=== PATIENT | female | born 1980 | race African-American/Black ===

== ENCOUNTER 2017-06-03 23:18 | Inpatient (IN) | payer BC, MEDICAID ==
[2017-06-03 23:55] LABS: #Eosinphils 0.1 thou/uL (0.0-0.7); #Lymphocytes 1.9 thou/uL (1.20-3.40); #Monocytes 0.2 thou/uL (0.11-0.59); #Neutrophils 4.5 thou/uL (1.40-6.50); %Basophils 0.7 % (0.0-1.0); %Eosinophils 2.1 % (0.0-10.0); %Lymphocytes 27.8 % (21.0-51.0); %Monocytes 3.3 % (0.0-10.0); %Neutrophils 66.2 % (42.0-75.0); Hemoglobin 11.5 g/dL (12.0-16.0); Mean Corpuscular HGB CONC 32.9 g/dL (32.0-36.0); Mean Corpuscular Hemoglobin 27.9 pg (27.0-31.0); Mean Corpuscular Volume 84.9 fl (81.0-99.0); Mean Platelet Volume 8.9 fL (7.4-10.4); Platelet Count 194 thou/uL (130-400); RBC Distribution Width 12.8 % (11.5-14.5); Red Blood Cell (RBC) Count 4.11 mill/uL (4.20-5.40); White Blood Cell (WBC) Count 6.8 thou/uL (4.8-10.8)
[2017-06-04 00:17] LABS: ALT (SGPT) 22 U/L (8-55); AST (SGOT) 20 U/L (5-34); Alkaline Phosphatase 90 U/L (40-150); Anion Gap 13 mmol/L (10-20); BUN (Urea Nitrogen) 13 mg/dL (7.0-18.7); Bilirubin, Total 0.5 mg/dL (0.2-1.2); Calc. Creatinine Clearance 0 mL/min (70-130); Calcium 9.1 mg/dL (7.8-10.44); Carbon Dioxide 22 mmol/L (22-29); Chloride 103 mmol/L (98-107); Estimated GFR-MDRD 87; Globulin 3.3 g/dL (2.4-3.5); Glucose 365 mg/dL (70-105); Potassium 3.7 mmol/L (3.5-5.1); Protein, Total 7.3 g/dL (6.0-8.3); Sodium 134 mmol/L (136-145)
[2017-06-04 00:24] LABS: Bilirubin Negative (Negative); Blood, Urine Trace (Negative); Clarity CLOUDY (Clear); Glucose, Urine (Dipstick) >=1000 mg/dL (Negative); Leukocyte Negative (Negative); Nitrite Negative (Negative); Protein, Urine (Dipstick) 300 mg/dL (Neg-Trace); Specific Gravity, Urine 1.023 (1.002-1.036); Urobilinogen 0.2 mg/dL (0.2-1.0)
[2017-06-04 00:25] LABS: CKMB 0.9 ng/mL (0-6.6); Troponin I Less than 0.010 ng/mL (< 0.028)
[2017-06-04 00:26] LABS: Bacteria/HPF Rare-Few HPF (None Seen); Hyaline Casts/LPF 0-3 HYALINE CAST LPF (0-3 Hyaline); Pathc Cast-AUWi Flag 0.72 (0-2.49); RBC/HPF 0-3 HPF (0-3); Squamous Epithelial 0-3 HPF (0-3)
[2017-06-04] MEDS ORDERED: Nitroglycerin 2% Ointment 1 INCH/1 GM Packet ONE (01:02)
[2017-06-04] MEDS ORDERED: Furosemide 40 MG/4 ML VIAL ONE (01:02)
[2017-06-04] MEDS ORDERED: Dextrose 50% Abboject 50 ML SYRINGE SLOW IVP PRN (04:07)
[2017-06-04] MEDS ORDERED: Dextrose 5% in Water 1,000 ML IV PRN (04:07)
[2017-06-04] MEDS ORDERED: HumaLOG 300 UNITS/3 ML VIAL SC PRN (04:10)
--- NOTE | 2017-06-04 04:33 | PDOC.FPRHP ---
- History of Present Illness Chief Complaint: SOB History of Present Illness: Patient is a 36yo F with PMH of cardiomyopathy and mixed CHF (last EF 35-40%), HTN, T2DM, and ERIC presenting iwht 2 wk hx of worsening orthopnea and dyspnea. She takes Lasix 40mg PO daily and recently decreased her antihypertensive medications. She is noncompliant with a fluid restriction and with CPAP for ERIC. She reports a wet cough but no fever, chills, chest pain, dysuria, or LE edema. ED Course: Lasix 40mg IV, Nitro patch, Rocephin 1g IV - Allergies/Adverse Reactions Allergies Allergy/AdvReac Type Severity Reaction Status Date / Time No Known Drug Allergies Allergy Verified 06/04/17 03:10 - Home Medications Medication Instructions Recorded Confirmed Type Insulin Detemir 100 UNITS/ML 36 units SC QAM #1 vial 07/07/16 06/04/17 Rx [Levemir] Furosemide [Lasix] 40 mg PO DAILY 06/04/17 06/04/17 History Metoprolol Succinate 100 mg PO DAILY 06/04/17 06/04/17 History metFORMIN [Glucophage] 500 mg PO BID 06/04/17 06/04/17 History - History PMHx: 1. ERIC 2. HTN 3. mixed CHF 4. Depression 5. Hx of Cardiomyopathy PSHx: 1. Ablation 2. Heart Cath (2017) FHx: 1. DM Social: 1. Denies etoh, drug, tobacco use - Review of Systems General: denies: fever/chills, weight/appetite/sleep changes Eyes: denies: eye pain, vision changes ENT: denies: nasal congestion, rhinorrhea Respiratory: reports: cough, shortness of breath, exercise intolerance. denies : congestion Cardiovascular: reports: orthopnea. denies: chest pain, palpitation Gastrointestinal: denies: nausea, vomiting, diarrhea, constipation, GI bleeding Genitourinary: denies: incontinence, dysuria Skin: denies: rashes Musculoskeletal: denies: pain, tenderness Neurological: denies: numbness, syncope Psychological: denies: anxiety, depression - Vital signs BP: 128/75 HR: 97 RR: 16 Tmax: 98.5 Pox: 93% on RA Wt: 99kg - Physical Exam Constitutional: NAD, awake, alert and oriented HEENT: normocephalic and atraumatic, PERRLA, EOMI, grossly normal vision, grossly normal hearing Neck: supple, FROM Chest: no-tender to palpation Heart: RRR -Heart: systolic murmur Lungs: no respiratory distress, good air movement -Lungs: rhonchi at bases bilaterally Abdomen: soft, non-tender, bowel sounds present Musculoskeletal: normal structure, normal tone Neurological: no focal deficit, CN II-XII intact Skin: no rash/lesions Psychiatric: normal mood and affect FMR H&P: Results - Labs Result Diagrams: 06/03/17 23:47 06/03/17 23:47 Lab results: WBC 6.8 thou/uL (4.8-10.8) 06/03/17 23:47 Hgb 11.5 g/dL (12.0-16.0) L 06/03/17 23:47 Hct 34.9 % (36.0-47.0) L 06/03/17 23:47 MCV 84.9 fl (81.0-99.0) 06/03/17 23:47 Plt Count 194 thou/uL (130-400) 06/03/17 23:47 Neutrophils % 66.2 % (42.0-75.0) 06/03/17 23:47 Sodium 134 mmol/L (136-145) L 06/03/17 23:47 Potassium 3.7 mmol/L (3.5-5.1) 06/03/17 23:47 Chloride 103 mmol/L (98-107) 06/03/17 23:47 Carbon Dioxide 22 mmol/L (22-29) 06/03/17 23:47 BUN 13 mg/dL (7.0-18.7) 06/03/17 23:47 Creatinine 0.89 mg/dL (0.6-1.1) 06/03/17 23:47 Glucose 365 mg/dL (70-105) H 06/03/17 23:47 Calcium 9.1 mg/dL (7.8-10.44) 06/03/17 23:47 Total Bilirubin 0.5 mg/dL (0.2-1.2) 06/03/17 23:47 AST 20 U/L (5-34) 06/03/17 23:47 ALT 22 U/L (8-55) 06/03/17 23:47 Alkaline Phosphatase 90 U/L (40-150) 06/03/17 23:47 CK-MB (CK-2) 0.9 ng/mL (0-6.6) 06/03/17 23:47 B-Natriuretic Peptide 191.6 pg/mL (0-100) H 06/03/17 23:47 Serum Total Protein 7.3 g/dL (6.0-8.3) 06/03/17 23:47 Albumin 4.0 g/dL (3.5-5.0) 06/03/17 23:47 Urine Ketones Negative mg/dL (Negative) 06/04/17 00:05 Urine Blood Trace (Negative) H 06/04/17 00:05 Urine Nitrite Negative (Negative) 06/04/17 00:05 Ur Leukocyte Esterase Negative (Negative) 06/04/17 00:05 Urine RBC 0-3 HPF (0-3) 04 00:05 Urine WBC Greater Than 50-TNTC HPF (0-3) H 06/04/17 00:05 Ur Squamous Epith Cells 0-3 HPF (0-3) 06/04/17 00:05 Urine Bacteria Rare-Few HPF (None Seen) 06/04/17 00:05 - EKG Interpretation EKG: Sinus Tachycardia with PVC's - Radiology Interpretation Chest x-ray Status: image reviewed by me, report reviewed by me Additional comment: vascular congestion with small bilateral pleural effusions FMR H&P: A/P - Problem List (1) CHF exacerbation Current Visit: Yes Status: Acute Code(s): I50.9 - HEART FAILURE, UNSPECIFIED (2) Elevated d-dimer Current Visit: Yes Status: Acute Code(s): R79.89 - OTHER SPECIFIED ABNORMAL FINDINGS OF BLOOD CHEMISTRY (3) Hypertension Current Visit: Yes Status: Acute Code(s): I10 - ESSENTIAL (PRIMARY) HYPERTENSION (4) Diabetes mellitus type 2 in obese Current Visit: No Status: Chronic Code(s): E11.9 - TYPE 2 DIABETES MELLITUS WITHOUT COMPLICATIONS; E66.9 - OBESITY, UNSPECIFIED (5) Obstructive sleep apnea Current Visit: No Status: Chronic Code(s): G47.33 - OBSTRUCTIVE SLEEP APNEA (ADULT) (PEDIATRIC) (6) Systolic CHF Current Visit: No Status: Chronic Code(s): I50.20 - UNSPECIFIED SYSTOLIC ( CONGESTIVE) HEART FAILURE - Plan CHF Exacerbation - patient noncompliant with HTN medications, CPAP, and fluid restriction- likely the cause of exacerbation - obtain records from recent echo at [facility] - IV Lasix, strict IO's, daily wts - O2 as needed for hypoxia, not hypoxic at this time HTN, uncontrolled - increase Lisinopril to 5mg - continue home medications and monitor ERIC - CPAP at night T2DM - ACHS accuchecks - home levemir Elevated D-Dimer - CTA pending Possible UTI - Asymptomatic. - s/p 1 dose of Rocephin in ED - Urine cx pending Disposition/LOS: Length of Hospital stay: < 2 days D/c home when euvolemic with adequate BP medications for control. FMR H&P: Upper Level - Pertinent history PCP: Nery HAMMONDS) Time Seen: 245 on 06/04/17 CC: Orthopnea and dyspnea 36 year old female presents for orthopnea and dyspnea ongoing for about 2 weeks. She reports increasing dyspnea at rest, exertional dyspnea, PND, and a nonproductive cough. She has also had a mild headache. Denies lower extremity edema, chest pain, AP, N/V/D. Previously attended HF clinic at [facility]. She has seen a cloth shrinking supervisor at [facility] in [place] twice. PMH - Combined systolic and diastolic CHF, DM2 with peripheral neuropathy, HTN, obstructive sleep apnea, allergic rhinitis, obesity PSH - Cardiac ablation, cardiac catheterization, - Pertinent findings Vital Signs Tmax 98.2 RR 26 HR 100 BP 158/106 O2 sats 100% on RA Weight 117 kg Physical Exam General: Obese, NAD, AAOx4. Eyes: EOMI, PERRL, nonicteric ENT: MMM, oropharynx clear CV: RRR, no m/r/g. Pulses full and equal in all 4 extremities Resp: Bibasilar rales. No wheezing or rhonchi. Breathing nonlabored Abdomen: Soft, nontender, nondistended, no guarding or rebound. Bowel sounds positive in all quadrants Extremities: No clubbing, cyanosis, or edema. Equal movements bilaterally Skin: No rash or ulcer. No palpable lesions Neuro: CN II - XII intact, no focal deficits Psych: Mood and affect appropriate. Judgment and insight intact - Plan Date/Time: 06/04/17 0432 Vinicius Irvin DO, have evaluated this patient and agree with findings/plan as outlined by art gallery internship resident. Pertinent changes/additions are listed here. A/P: 36 year old female presents with: 1) Acute exacerbation of combined CHF - Admit to telemetry. Continue diuresis. Strict I&Os. Resume home meds. Patient feels symptomatically improved after iv Lasix in the ED. Patient reports having an echo this year a [facility]. Will obtain records if possible. Consider repeat echo if not available. 2) Hypertension - Home meds will likely need to be increased with possible increase in other meds. Patient has been noncompliant with her medications, so restarting her prescribed meds is a good starting point. We discussed at length that failure to get her blood pressure at goal will likely result in worsening of her CHF. Patient verbalized understanding and staged she would attempt to take meds as instructed. 3) DM2 - Accuchecks, sliding scale insulin, and home meds 4) Obstructive sleep apnea - Untreated. Patient needs counseling on risks of untreated sleep apnea and benefits of CPAP use 5) Code status - Full Attending Addendum - Attending Addendum Date/Time: 06/04/17 1056 I personally evaluated the patient and discussed the management with Dr. Tse/ Eliot. I agree with the History, Examination, Assessment and Plan documented above with any addition or exceptions noted below. Patient here with history of sdCHF, HTN and med noncompliance here with increasing SORTO and orthopnea at night associated with highly elevated blood pressures. She has lung findings consistent with mild volume overload, and blood pressures elevated, though chronically after review of clinic records. She will be admitted for mild sdCHF exacerbation with mild hypoxia and HTN urgency. Resume blood pressure medications and attempt mild diuresis. She is already feeling somewhat improved. Counselled extensively on the need for adequate blood pressure control to control her symptoms as well as prevent further decompensation of her heart failure. Attempt to obtain records of her recent Echo. Her blood sugars are elevated but she reports decent numbers at home. Resume home regimen and titrate as necessary. Anticipate 2-3 days hospitalization.
[2017-06-04] MEDS: HumaLOG 300 UNITS/3 ML VIAL SC PRN ×2 (06:11→18:08)
--- NOTE | 2017-06-04 07:53 | RAD ---
CHEST PA AND LATERAL: History: 36-year-old female with history of shortness of breath and congestive heart failure. FINDINGS: There is bilateral vascular congestion as well as some scattered bilateral interstitial edema. There are bilateral pleural effusions. IMPRESSION: Mild cardiomegaly with vascular congestion and mild interstitial edema and small pleural effusions. POS: [facility]
--- NOTE | 2017-06-04 08:37 | CT ---
PRELIMINARY REPORT/[facility]/EMERGENTY AFTER-HOURS PROCEDURE CT Angiography Chest With Intravenous Contrast CLINICAL HISTORY: 36 years old, female; Signs and symptoms; Dyspnea and shortness of breath; Prior surgery; Patient HX: F36 presents to ed for shortness of breath. Pt reports SOB x2 weeks and non-productive cough. Pt rep orts SOB is worse with exertion and is worse when lying flat. Pt denies fever and denies any pain. Pt reports this feels similar to her previous chf exacerbations. TECHNIQUE: Axial computed tomographic angiography images of the chest with intravenous contrast using pulmonary embolism protocol. COMPARISON: No relevant prior studies available. FINDINGS: Pulmonary arteries: No pulmonary embolism. Aorta: No acute findings. No thoracic aortic aneurysm. Lungs: Mild ground glass opacities and lingular/left upper lobe vague opacities. Question minimal interstitial thickening Pleural space: Small effusions. No pneumothorax. Heart: Moderate to severe cardiomegaly. No significant pericardial effusion. No evidence of RV dysfunction. Bones/joints: No acute fracture. No dislocation. Soft tissues: Unremarkable. Lymph nodes: Unremarkable. No enlarged lymph nodes. Hepatomegaly noted IMPRESSION: No definite pulmonary embolism detected Mild edema and small pleural effusions Moderate to severe cardiomegaly Thank you for allowing us to participate in the care of your patient. Dictated and Authenticated by: Michael Mercado MD 06/04/2017 4:25 AM Central Time ([place] & [place]) FINAL REPORT CT ANGIOGRAM CHEST WITH [facility] EMERGENCY AFTER HOURS EXAM TIME: 3:36 a.m. DATE: 06/04/17. FINDINGS: Bilateral pleural effusions with some bilateral vascular congestion and some interstitial and alveola r diffuse parenchymal changes and ground-glass opacity changes, evidence for acute pulmonary edema. No CT evidence for acute pulmonary embolism. Cardiomegaly. POS: [facility]
[2017-06-04] MEDS ORDERED: ADMIXTURE FEE SC SCH ×2 (09:00→21:00)
[2017-06-04] MEDS ORDERED: Valsartan 80 MG TAB PO SCH ×2 (09:00→18:15)
[2017-06-04] MEDS ORDERED: metFORMIN 500 MG TAB PO SCH (09:00)
[2017-06-04] MEDS ORDERED: INSULIN DETEMIR SC SCH ×2 (09:00→21:00)
[2017-06-04] MEDS: Furosemide 40 MG/4 ML VIAL SLOW IVP SCH (10:15)
[2017-06-04] MEDS ORDERED: ISOVUE-370 76%-LOCM 1 ML ONE (10:44)
[2017-06-04] MEDS: Citalopram 20 MG TAB PO SCH (14:33)
[2017-06-04] MEDS ORDERED: Labetalol HCl 100 MG/20 ML VIAL SLOW IVP PRN (21:34)
[2017-06-05 05:23] LABS: Anion Gap 9 mmol/L (10-20); BUN (Urea Nitrogen) 24 mg/dL (7.0-18.7); Calc. Creatinine Clearance 147 mL/min (70-130); Calcium 9.4 mg/dL (7.8-10.44); Carbon Dioxide 29 mmol/L (22-29); Chloride 103 mmol/L (98-107); Estimated GFR-MDRD Greater than 90; Glucose 140 mg/dL (70-105); Potassium 3.7 mmol/L (3.5-5.1); Sodium 137 mmol/L (136-145)
[2017-06-05] MEDS: metFORMIN 500 MG TAB PO SCH ×2 (08:26→16:48)
[2017-06-05] MEDS: Citalopram 20 MG TAB PO SCH (08:27)
[2017-06-05] MEDS: Furosemide 40 MG/4 ML VIAL SLOW IVP SCH (08:28)
[2017-06-05] MEDS: Acetaminophen 325 MG TAB PO PRN ×2 (08:31→15:15)
[2017-06-05] MEDS ORDERED: Valsartan 80 MG TAB PO SCH ×2 (09:00)
--- NOTE | 2017-06-05 09:14 | PDOC.FM ---
- Subjective Subjective: CC: Headache HPI: States she had a CHAMBERS that developed overnight. Denies other neurological symptoms. Counseled at length regarding the importance of medication compliance and outpatient follow up. - Objective MAR Reviewed: Yes Vital Signs & Weight: Vital Signs (12 hours) Temp Pulse Resp BP BP Pulse Ox 06/05/17 04:52 98.5 F 87 18 123/64 97 06/05/17 04:00 98.5 F 87 18 123/64 97 06/05/17 00:00 98.9 F 94 21 H 133/67 97 06/04/17 22:01 190/123 H Weight Weight 109.18 kg I&O: 06/04/17 06/05/17 06/06/17 06:59 06:59 06:59 Intake Total 1080 Output Total 400 Balance 680 Result Diagrams: 06/03/17 23:47 06/05/17 04:51 <Donal Russ W - Last Filed: 06/05/17 09:12> - Objective Vital Signs & Weight: Vital Signs (12 hours) Temp Pulse Resp BP Pulse Ox 06/05/17 08:00 98.1 F 84 18 139/80 100 06/05/17 04:52 98.5 F 87 18 123/64 97 06/05/17 04:00 98.5 F 87 18 123/64 97 06/05/17 00:00 98.9 F 94 21 H 133/67 97 Weight Weight 109.18 kg I&O: 06/04/17 06/05/17 06/06/17 06:59 06:59 06:59 Intake Total 1080 Output Total 400 Balance 680 Result Diagrams: 06/03/17 23:47 06/05/17 04:51 <Angelito Urrutia R - Last Filed: 06/05/17 10:56> Phys Exam - Physical Examination Constitutional: NAD HEENT: moist MMs, sclera anicteric Respiratory: no wheezing, clear to auscultation bilateral Cardiovascular: RRR, no significant murmur Gastrointestinal: soft, non-tender Musculoskeletal: no edema Neurological: non-focal, moves all 4 limbs Psychiatric: normal affect, A&O x 3 <Donal Russ W - Last Filed: 06/05/17 09:12> Dx/Plan (1) CHF exacerbation Code(s): I50.9 - HEART FAILURE, UNSPECIFIED Status: Acute QualifierTitle: Heart failure type: systolic Qualified Code(s): I50.23 - Acute on chronic systolic (congestive) heart failure Plan: Clinically improved. Weights not likely reliable as she appears to have gained 10 kg since admission - continue to titrate medications. (2) Elevated d-dimer Code(s): R79.89 - OTHER SPECIFIED ABNORMAL FINDINGS OF BLOOD CHEMISTRY Status : Acute Plan: CTA negative. (3) Hypertension Code(s): I10 - ESSENTIAL (PRIMARY) HYPERTENSION Status: Acute QualifierTitle: Hypertension type: essential hypertension Qualified Code( s): I10 - Essential (primary) hypertension Plan: Increased valsartan to 160 mg today since elevated with 80 mg yesterday - required labatolol overnight. (4) Diabetes Code(s): E11.9 - TYPE 2 DIABETES MELLITUS WITHOUT COMPLICATIONS Status: Acute QualifierTitle: Diabetes mellitus type: type 2 Diabetes mellitus fdc insulin use: with rn long term care use Diabetes mellitus complication status: without complication Qualified Code(s): E11.9 - Type 2 diabetes mellitus without complications; Z79.4 - jail (current) use of insulin; Z79.4 - vermin exterminator (current) use of insulin; Z79.4 - vermin exterminator (current) use of insulin; Z79.4 - vermin exterminator (current) use of insulin Plan: Increased metformin to 1000 mg BID and Levemir to 40 units BID <Donal Russ - Last Filed: 06/05/17 09:12> (1) CHF exacerbation Code(s): I50.9 - HEART FAILURE, UNSPECIFIED Status: Acute Qualifiers: Heart failure type: systolic Qualified Code(s): I50.23 - Acute on chronic systolic (congestive) heart failure (2) Elevated d-dimer Code(s): R79.89 - OTHER SPECIFIED ABNORMAL FINDINGS OF BLOOD CHEMISTRY Status : Acute (3) Hypertension Code(s): I10 - ESSENTIAL (PRIMARY) HYPERTENSION Status: Acute Qualifiers: Hypertension type: essential hypertension Qualified Code(s): I10 - Essential (primary) hypertension (4) Diabetes mellitus type 2 in obese Code(s): E11.9 - TYPE 2 DIABETES MELLITUS WITHOUT COMPLICATIONS; E66.9 - OBESITY , UNSPECIFIED Status: Chronic (5) Obstructive sleep apnea Code(s): G47.33 - OBSTRUCTIVE SLEEP APNEA (ADULT) (PEDIATRIC) Status: Chronic (6) Systolic CHF Code(s): I50.20 - UNSPECIFIED SYSTOLIC (CONGESTIVE) HEART FAILURE Status: Chronic <Angelito Urrutia - Last Filed: 06/05/17 10:56> Attending Addendum - Attending Addendum Date/Time: 06/05/17 1050 I personally evaluated the patient and discussed the management with Dr. Russ. I agree with the History, Examination, Assessment and Plan documented above with any addition or exceptions noted below. Patient feeling better from respiratory standpoint today. Able to lay flat and ambulate around the floor. Will change her diuretic regimen back to PO Lasix. Her blood pressures have been better after receiving 80mg Valsartan yesterday, and I would recommend we continue that dose at discharge. She is having some mild headache and malaise today, it is likely due to her body adapting to these normal blood pressure levels. Insulin and Metformin doses increased to obtain better control of her blood sugars. Anticipate 1-2 more days in hospital. <Angelito Urrutia - Last Filed: 06/05/17 10:56>
[2017-06-05] MEDS: Insulin Detemir 100 UNITS/ML 40 UNITS in Pre-Filled Syringe 1 EACH SC SCH (10:46)
[2017-06-05] MEDS ORDERED: Insulin Detemir 100 UNITS/ML 40 UNITS in Pre-Filled Syringe 1 EACH SC SCH (21:00)
--- NOTE | 2017-06-06 06:37 | PDOC.FM ---
- Subjective Subjective: CC: Feeling better HPI: States her headache has resolved. Nurse states they held PM insulin because her blood glucose was lower end of normal. Primary team was not notified. Patient feels safe to go home. - Objective MAR Reviewed: Yes Vital Signs & Weight: Vital Signs (12 hours) Temp Pulse Resp BP Pulse Ox 06/06/17 04:00 97.9 F 84 18 151/73 H 100 06/06/17 00:00 98.3 F 80 18 135/82 100 06/05/17 20:00 98.6 F 91 18 180/102 H 95 Weight Weight 108.681 kg I&O: 06/04/17 06/05/17 06/06/17 06:59 06:59 06:59 Intake Total 1080 650 Output Total 400 Balance 680 650 Result Diagrams: 06/03/17 23:47 06/05/17 04:51 <Donal Russ - Last Filed: 06/06/17 08:59> - Objective Vital Signs & Weight: Vital Signs (12 hours) Temp Pulse Resp BP BP Pulse Ox 06/06/17 08:00 97.9 F 77 18 142/83 H 100 06/06/17 04:00 97.9 F 84 18 151/73 H 100 06/06/17 00:00 98.3 F 80 18 135/82 100 Weight Weight 107.275 kg I&O: 06/05/17 06/06/17 06/07/17 06:59 06:59 06:59 Intake Total 1080 650 Output Total 400 Balance 680 650 Result Diagrams: 06/03/17 23:47 06/05/17 04:51 <Angelito Urrtuia - Last Filed: 06/06/17 11:25> Phys Exam - Physical Examination Constitutional: NAD HEENT: moist MMs, sclera anicteric Neck: no nodes Respiratory: no wheezing, clear to auscultation bilateral Cardiovascular: RRR, no significant murmur Gastrointestinal: soft, non-tender Musculoskeletal: no edema Neurological: non-focal, moves all 4 limbs Psychiatric: normal affect, A&O x 3 <Donal Russ - Last Filed: 06/06/17 08:59> Dx/Plan (1) CHF exacerbation Code(s): I50.9 - HEART FAILURE, UNSPECIFIED Status: Acute QualifierTitle: Heart failure type: systolic Qualified Code(s): I50.23 - Acute on chronic systolic (congestive) heart failure Plan: Clinically improved. Weights not likely reliable as she appears to have gained 10 kg since admission - continue to titrate medications. - stable for d/c today (2) Hypertension Code(s): I10 - ESSENTIAL (PRIMARY) HYPERTENSION Status: Acute QualifierTitle: Hypertension type: essential hypertension Qualified Code( s): I10 - Essential (primary) hypertension Plan: Keep valsartan at 160 mg daily - continue to titrate outpatient - consider switching valsartan or metoprolol to HS dosing or valsartan to 80 mg BID. will discuss on attending rounds. (3) Diabetes Code(s): E11.9 - TYPE 2 DIABETES MELLITUS WITHOUT COMPLICATIONS Status: Acute QualifierTitle: Diabetes mellitus type: type 2 Diabetes mellitus halfway insulin use: with terminal makeup operator use Diabetes mellitus complication status: without complication Qualified Code(s): E11.9 - Type 2 diabetes mellitus without complications; Z79.4 - terminal makeup operator (current) use of insulin; Z79.4 - correction (current) use of insulin; Z79.4 - terminal makeup operator (current) use of insulin; Z79.4 - correction (current) use of insulin Plan: Marked improvement with increase in levemir - PM dose held. Will likely be hyperglycemic this morning. Continue current dosing with outpatient titration. (4) Elevated d-dimer Code(s): R79.89 - OTHER SPECIFIED ABNORMAL FINDINGS OF BLOOD CHEMISTRY Status : Acute Plan: CTA negative. <Donal Russ - Last Filed: 06/06/17 08:59> (1) CHF exacerbation Code(s): I50.9 - HEART FAILURE, UNSPECIFIED Status: Acute Qualifiers: Heart failure type: systolic Qualified Code(s): I50.23 - Acute on chronic systolic (congestive) heart failure (2) Elevated d-dimer Code(s): R79.89 - OTHER SPECIFIED ABNORMAL FINDINGS OF BLOOD CHEMISTRY Status : Acute (3) Hypertension Code(s): I10 - ESSENTIAL (PRIMARY) HYPERTENSION Status: Acute Qualifiers: Hypertension type: essential hypertension Qualified Code(s): I10 - Essential (primary) hypertension (4) Diabetes mellitus type 2 in obese Code(s): E11.9 - TYPE 2 DIABETES MELLITUS WITHOUT COMPLICATIONS; E66.9 - OBESITY , UNSPECIFIED Status: Chronic (5) Obstructive sleep apnea Code(s): G47.33 - OBSTRUCTIVE SLEEP APNEA (ADULT) (PEDIATRIC) Status: Chronic (6) Systolic CHF Code(s): I50.20 - UNSPECIFIED SYSTOLIC (CONGESTIVE) HEART FAILURE Status: Chronic <Angelito Urrutia - Last Filed: 06/06/17 11:25> Attending Addendum - Attending Addendum Date/Time: 06/06/17 1124 I personally evaluated the patient and discussed the management with Dr. Russ. I agree with the History, Examination, Assessment and Plan documented above with any addition or exceptions noted below. Patient symptomatically improved and able to ambulate without difficulty. BP and blood sugars improved with medication changes. She is stable for discharge home today with continued management in outpatient setting. <Angelito Urrutia - Last Filed: 06/06/17 11:25>
[2017-06-06] MEDS: metFORMIN 500 MG TAB PO SCH (08:48)
[2017-06-06] MEDS: Citalopram 20 MG TAB PO SCH (08:48)
[2017-06-06] MEDS: Insulin Detemir 100 UNITS/ML 40 UNITS in Pre-Filled Syringe 1 EACH SC SCH (08:49)
[2017-06-06] MEDS ORDERED: Valsartan 80 MG TAB PO SCH (09:00)
[2017-06-06] MEDS ORDERED: Furosemide 40 MG TAB PO SCH (09:00)
[2017-06-06] MEDS: Acetaminophen 325 MG TAB PO PRN (09:14)
[2017-06-06 11:11] VITALS: BMI 39.3
--- NOTE | 2017-06-06 12:07 | DIS-2 ---
DATE OF ADMISSION: 06/04/2017 DATE OF DISCHARGE: 06/06/2017 RESIDENT: Donal Russ M.D. ADMITTING ATTENDING: Dr. Angelito Urrutia DISCHARGE ATTENDING: Dr. Angelito Urrutia CONSULTATIONS: None. PROCEDURES: None. IMAGIN. Chest x-ray 06/04/2017 showed mild cardiomegaly with vascular congestion and mild interstitial edema with small pleural effusions. 2. CTA thorax, PE protocol: Bilateral pleural effusions with bilateral vascular congestion and some interstitial alveolar diffuse parenchymal changes, opacity changes, evidence for acute pulmonary edema and no evidence of pulmonary embolism and cardiomegaly. PERTINENT LABORATORY FINDINGS: D-dimer 1.91. BNP 191, negative troponin and CK -MB 0.9 and less than 0.010. PRIMARY DIAGNOSIS: Acute heart failure exacerbation. SECONDARY DIAGNOSES: 1. Hypertension. 2. Hyperlipidemia. 3. Heart failure with reduced ejection fraction. 4. Insulin-dependent diabetes mellitus type 2. 5. Chronic kidney disease stage 2. 6. Noncompliance. DISCHARGE MEDICATIONS: 1. Citalopram 20 mg daily. 2. Lasix 40 mg daily. 3. Metformin 1000 mg b.i.d. 4. Metoprolol succinate 100 mg daily. 5. Valsartan 80 mg at bedtime. 6. Levemir 40 units q.a.m. and bedtime. DISCONTINUED MEDICATIONS: 1. Metformin 500 mg b.i.d. 2. Levemir 30 units q.a.m. and at bedtime. HOSPITAL COURSE: Ms. Billings is a pleasant 36-year-old female who presented to the ER with chief complaint of progressively worsening shortness of breath for the 2 weeks prior to admission. States she had been noncompliant with her fluid restriction and with her CPAP. Also, has been noncompliant with her medications in the past. She was admitted for mild heart failure exacerbation and was diuresed with IV Lasix. Recorded weights were likely not accurate as the patient appeared to have a 10 kilogram increase overnight over the first day, but ended up with a discharge weight of 108.6 kilograms. Her blood pressure medications were also titrated. Her valsartan was increased to 80 mg at bedtime. Nighttime dosing was recommended as the patient's blood pressures consistently spiked overnight. Her insulin and metformin were also increased as listed above. Echo report initially requested from the [facility] but were not able to be obtained. This can be followed up outpatient. Vital signs at time of discharge were stable. She was counseled extensively on the importance of compliance with medication, diet and outpatient followup. DISPOSITION: Stable. DISCHARGE INSTRUCTIONS: 1. Location: Home. 2. Diet: Heart healthy, low sodium, fluid restrict 2000 mL a day and diabetic , very consistent carbohydrates. 3. Activity: As tolerated. 4. Followup: The patient has an appointment scheduled with Dr. Komal Gabriel on 06/12/2017. She was encouraged to keep this appointment. Less than 30 minutes spent on discharge. HELEN
[2017-06-06] MEDS: HumaLOG 300 UNITS/3 ML VIAL SC PRN (12:53)
[2017-06-06 13:06] VITALS: BP 137/89; TEMP 98.1
== END 2017-06-06 14:05 | disposition home or self-care (01) | DRG 291 ==
LOC: ERS 23:18 → 2NO 06-04 01:31
PROVIDERS: ADMIT Family Medicine; ATTEND Family Medicine
DX: I13.0 Hypertensive heart and chronic kidney disease with heart failure and stage 1 through stage 4 chronic kidney disease, or unspecified chronic kidney disease (principal); I50.43 Acute on chronic combined systolic (congestive) and diastolic (congestive) heart failure; E11.22 Type 2 diabetes mellitus with diabetic chronic kidney disease; E11.42 Type 2 diabetes mellitus with diabetic polyneuropathy; I42.9 Cardiomyopathy, unspecified; G47.33 Obstructive sleep apnea (adult) (pediatric); Z91.19 Patient's noncompliance with other medical treatment and regimen; Z79.4 Long term (current) use of insulin; E66.9 Obesity, unspecified; Z68.39 Body mass index [BMI] 39.0-39.9, adult; I16.0 Hypertensive urgency; E78.5 Hyperlipidemia, unspecified; N18.2 Chronic kidney disease, stage 2 (mild)
CPT/HCPCS: 36415; 36416; 71046; 71275; 80048; 80053; 81003; 81015; 82553; 83880; 84484; 85025; 85379; 87086; 93005; 93798; 96374; 96375; A4216; J0696; J1815; J1940

== ENCOUNTER 2017-12-03 09:53 | Emergency (ER) | payer OTHER ==
[2017-12-03 10:21] LABS: Bilirubin Negative (Negative); Blood, Urine Negative (Negative); Clarity CLOUDY (Clear); Glucose, Urine (Dipstick) >=1000 mg/dL (Negative); Leukocyte Small (Negative); Nitrite Negative (Negative); Protein, Urine (Dipstick) 30 mg/dL (Neg-Trace); Specific Gravity, Urine 1.024 (1.002-1.036); Urobilinogen 0.2 mg/dL (0.2-1.0)
[2017-12-03 10:23] LABS: Bacteria/HPF None Seen HPF (None Seen); Hyaline Casts/LPF 0-3 HYALINE CAST LPF (0-3 Hyaline); Pathc Cast-AUWi Flag 0.29 (0-2.49)
[2017-12-03] MEDS ORDERED: Morphine 4 MG/ML VIAL ONE (10:44)
[2017-12-03] MEDS ORDERED: Ondansetron HCl/PF 4 MG/2 ML Vial ONE (10:44)
[2017-12-03 10:48] LABS: Crystals/HPF 1+ STARCH HPF (Negative); RBC/HPF 0-3 HPF (0-3)
[2017-12-03 10:55] LABS: #Basophils 0.1 thou/uL (0.0-0.2); #Eosinphils 0.1 thou/uL (0.0-0.7); #Lymphocytes 2.3 thou/uL (1.20-3.40); #Monocytes 0.3 thou/uL (0.11-0.59); #Neutrophils 3.1 thou/uL (1.40-6.50); %Basophils 1.6 % (0.0-1.0); %Eosinophils 2.4 % (0.0-10.0); %Lymphocytes 38.5 % (21.0-51.0); %Monocytes 4.7 % (0.0-10.0); %Neutrophils 52.8 % (42.0-75.0); Hemoglobin 12.8 g/dL (12.0-16.0); Mean Corpuscular HGB CONC 31.5 g/dL (32.0-36.0); Mean Corpuscular Hemoglobin 26.4 pg (27.0-31.0); Mean Corpuscular Volume 83.8 fL (78.0-98.0); Mean Platelet Volume 10.7 fL (7.4-10.4); Platelet Count 184 thou/uL (130-400); RBC Distribution Width 13.1 % (11.5-14.5); Red Blood Cell (RBC) Count 4.84 mill/uL (4.20-5.40); White Blood Cell (WBC) Count 5.9 thou/uL (4.8-10.8)
[2017-12-03 11:40] LABS: ALT (SGPT) 14 U/L (8-55); AST (SGOT) 20 U/L (5-34); Albumin 3.9 g/dL (3.5-5.0); Alkaline Phosphatase 87 U/L (40-150); Anion Gap 8 mmol/L (10-20); BUN (Urea Nitrogen) 11 mg/dL (7.0-18.7); Bilirubin, Total 0.8 mg/dL (0.2-1.2); Calc. Creatinine Clearance 0 mL/min (70-130); Calcium 8.7 mg/dL (7.8-10.44); Carbon Dioxide 24 mmol/L (22-29); Chloride 104 mmol/L (98-107); Estimated GFR-MDRD 90; Globulin 3.6 g/dL (2.4-3.5); Glucose 263 mg/dL (70-105); Lipase 12 U/L (8-78); Potassium 4.4 mmol/L (3.5-5.1); Protein, Total 7.5 g/dL (6.0-8.3); Sodium 132 mmol/L (136-145)
[2017-12-03 12:40] LABS: Pregnancy Test - Urine (BHCG) Negative (Negative); Pregu Control Background? CLEAR/WHITE (CLR/WHITE); Pregu Control Bar Appear? YES (CONTROL BAR); Specific Gravity 1.024 (1.002-1.036)
--- NOTE | 2017-12-03 13:08 | CT ---
CT ABDOMEN AND PELVIS WITHOUT CONTRAST: INDICATIONS: History of right-sided flank pain. COMPARISON: 10/07/2015 FINDINGS: The lung bases are clear. There is no renal or ureteral calculus demonstrated. Unopacified pancreas, adrenal glands, and spleen appear within normal limits. No free fluid or enlarged lymph nodes are evident. There is a normal appendix in the right lower quadrant of the abdomen. The bladder is moderately dis tended. The rectum and perirectal soft tissues are within normal limits. Unopacified colon is unremarkable. No definite acute osseous abnormality is evident. IMPRESSION: 1. No renal or ureteral calculus. 2. Normal appendix. POS: [facility]
== END 2017-12-03 14:00 | disposition home or self-care (01) ==
LOC: ERS 09:53
DX: N39.0 Urinary tract infection, site not specified (principal); G47.30 Sleep apnea, unspecified; I11.0 Hypertensive heart disease with heart failure; I50.9 Heart failure, unspecified; E11.9 Type 2 diabetes mellitus without complications; Z79.4 Long term (current) use of insulin; F32.9 Major depressive disorder, single episode, unspecified; Z79.899 Other long term (current) drug therapy
CPT/HCPCS: 74176; 80053; 81003; 81015; 81025; 83605; 83690; 85025; 96361; 96374; 96375; J2270; J2405

== ENCOUNTER 2019-07-23 15:34 | Inpatient (IN) | payer OTHER, SELFPAY ==
[2019-07-23 16:24] LABS: #Basophils 0.1 thou/uL (0.0-0.2); #Eosinphils 0.1 thou/uL (0.0-0.7); #Lymphocytes 2.7 thou/uL (1.20-3.40); #Monocytes 0.3 thou/uL (0.11-0.59); #Neutrophils 4.8 thou/uL (1.40-6.50); %Basophils 0.9 % (0.0-1.0); %Eosinophils 1.7 % (0.0-10.0); %Lymphocytes 33.9 % (21.0-51.0); %Monocytes 3.7 % (0.0-10.0); %Neutrophils 59.9 % (42.0-75.0); Mean Corpuscular HGB CONC 31.5 g/dL (32.0-36.0); Mean Corpuscular Hemoglobin 26.8 pg (27.0-31.0); Mean Corpuscular Volume 85.2 fL (78.0-98.0); Mean Platelet Volume 10.1 fL (7.4-10.4); Platelet Count 215 thou/uL (130-400); RBC Distribution Width 12.6 % (11.5-14.5); Red Blood Cell (RBC) Count 4.84 mill/uL (4.20-5.40)
--- NOTE | 2019-07-23 16:34 | RAD ---
Chest one view HISTORY: Dyspnea. COMPARISON: 07/21/2019. FINDINGS: Cardiac silhouette is magnified by projection. Pulmonary vasculature is within normal limit s. Mediastinum is midline. No lobar consolidation or evidence of pneumothorax. electronic device monitor leads overlie the chest. IMPRESSION : No active cardiopulmonary abnormalities are demonstrated.
[2019-07-23 16:53] LABS: ALT (SGPT) 19 U/L (8-55); AST (SGOT) 21 U/L (5-34); Albumin 4.1 g/dL (3.5-5.0); Alkaline Phosphatase 120 U/L (40-110); Anion Gap 15 mmol/L (10-20); BUN (Urea Nitrogen) 14 mg/dL (7.0-18.7); Bilirubin, Total 0.8 mg/dL (0.2-1.2); CK (CPK) 133 U/L (29-168); Calc. Creatinine Clearance 0 mL/min (70-130); Calcium 9.2 mg/dL (7.8-10.44); Carbon Dioxide 24 mmol/L (22-29); Chloride 101 mmol/L (98-107); Estimated GFR-MDRD 73; Globulin 3.7 g/dL (2.4-3.5); Glucose 341 mg/dL (70-105); Lipase 12 U/L (8-78); Potassium 4.1 mmol/L (3.5-5.1); Protein, Total 7.8 g/dL (6.0-8.3); Sodium 136 mmol/L (136-145)
[2019-07-23] MEDS ORDERED: Labetalol HCl 100 MG/20 ML VIAL ONE (18:11)
[2019-07-23 18:25] LABS: Bacteria/HPF None Seen HPF (None Seen); Bilirubin Negative (Negative); Blood, Urine Negative (Negative); Clarity Clear (Clear); Glucose, Urine (Dipstick) Greater than 1000 mg/dL (Negative); Leukocyte Negative Leu/uL (Negative); Nitrite Negative (Negative); Protein, Urine (Dipstick) 70 mg/dL (Neg-Trace); RBC/HPF 0-3 HPF (0-3); Squamous Epithelial 0-3 HPF (0-3); Urobilinogen Normal mg/dL (Less than 2); WBC/HPF 0-3 HPF (0-3)
[2019-07-23] MEDS ORDERED: Labetalol HCl 100 MG/20 ML VIAL SLOW IVP SCH (19:45)
[2019-07-23] MEDS ORDERED: niCARdipine 20MG In NaCl 20 MG/200 ML BAG IVPB SCH (19:45)
[2019-07-23] MEDS ORDERED: niCARdipine 20MG In NaCl 20 MG/200 ML BAG ONE (19:56)
--- NOTE | 2019-07-23 20:09 | PDOC.FPRHP ---
Addendum entered and electronically signed by Kilo Menezes MD 07/24/19 01:59 : I went and evaluated patient. I agree with the below document. See below for detailed plan. Pt had not been taking bp medications. Pt comes in with HTN urgency. Pt was given a few doses of IV labetolol in ER and placed on nicardipine drip. Will continue to wean as tolerated. See below for detailed plan. Original Note: - History of Present Illness Chief Complaint: SOB History of Present Illness: Pt is a 38 yo F HTN ( 20 years after first child), DMII (3 years), Depression, and CHF (4 years) presents to the ED for increased shortness of breath. She says she started having more shortness of breath about 2 and half to 3 weeks lately. She said she first started noticing that she got shorter of breath with walking. She has to sit at a 90 degree angle to sleep at night and she wakes up at night short of breath. She says she used to take medications for her blood pressure, but she stopped because it made her feel like a zombie. Previous medications were Valsartan, Carvedilol, Metoprolol, Lisinopril, and Clonidine. She says she felt so short of breath that she went to the ED in [place] at Friday and they found her CXR to be normal and started her on Carvedilol and Lisinopril for her blood pressures. She says she has a wet cough that has been going on since all this started. She had some swelling, so she increased her home Lasix from 40 to 80 mg. Of note, the medications she does take besides the Carvedilol and Lisinopril that were started Friday are Levemir 50 mg BID prn, Metformin prn, and Clonidine 0.2 prn when she is home. She says it has been a long time since she has seen a [employer]. She did live in [place] and moved out of town, but recently she moved back and has not re-established care. ED Course: In the ED, she was given Labetolol 20 mg IVP x2 doses. Her labs were remarkable for a BNP of 119, Trop of 0.021, and UA significant for glucose with a serum glucose of 341. - Allergies/Adverse Reactions Allergies Allergy/AdvReac Type Severity Reaction Status Date / Time No Known Drug Allergies Allergy Verified 05/07/19 15:09 - Home Medications Medication Instructions Recorded Confirmed Type Carvedilol [Coreg] 25 mg PO BID 07/23/19 07/23/19 History Furosemide [Lasix] 80 mg PO DAILY 07/23/19 07/23/19 History Insulin Detemir 100 UNITS/ML 52 units SC HS 07/23/19 07/23/19 History [Levemir] Insulin Detemir 100 UNITS/ML 52 units SC QAM 07/23/19 07/23/19 History [Levemir] Lisinopril 20 mg PO DAILY 07/23/19 07/23/19 History - History PMHx: HTN ( 20 years after first child), DMII (3 years), Depression, and CHF (4 years) PSHx: Heart Ablation (2011), Heart Cath (2016), Partial Hysterectomy (2007) FHx: Mom and Dad: HTN, Dad: DM, Mom: glaucoma Social: No alcohol, tobacco, or recreational drugs - Review of Systems General: reports: weight/appetite/sleep changes, fatigue. denies: fever/chills Eyes: denies: vision changes ENT: denies: nasal congestion, rhinorrhea Respiratory: reports: cough, shortness of breath, exercise intolerance. denies : congestion Cardiovascular: reports: edema, paroxysmal nocturnal dyspnea, orthopnea. denies : chest pain, palpitation Gastrointestinal: denies: nausea, vomiting, diarrhea, constipation, abdominal pain Genitourinary: denies: dysuria Skin: denies: rashes, lesions Musculoskeletal: denies: pain, tenderness Neurological: reports: syncope. denies: numbness, weakness Psychological: reports: depression - Vital signs BP: 220/155 HR: 86 RR: 12 Tmax: 99.0 Pox: 98% on RA Wt: 113.2 kg - Physical Exam Constitutional: NAD, awake, alert and oriented HEENT: normocephalic and atraumatic, EOMI, conjunctiva clear, no scleral icterus , normal nasal mucosa, MMM, oropharynx clear Neck: supple, no LAD Heart: RRR, normal S1/S2, no murmurs/rubs/gallops, pulses present, no edema Lungs: CTAB, no respiratory distress, good air movement, no wheezing, no retractions Abdomen: soft, non-tender, bowel sounds present Musculoskeletal: normal structure, normal tone Neurological: no focal deficit, CN II-XII intact, normal sensation Skin: no rash/lesions, good turgor Heme/Lymphatic: no unusual bruising or bleeding -Psychiatric: sad affect FMR H&P: Results - Labs Result Diagrams: 07/23/19 16:17 07/23/19 16:17 Lab results: WBC 8.0 thou/uL (4.8-10.8) 07/23/19 16:17 Hgb 13.0 g/dL (12.0-16.0) 07/23/19 16:17 Hct 41.3 % (36.0-47.0) 07/23/19 16:17 MCV 85.2 fL (78.0-98.0) 07/23/19 16:17 Plt Count 215 thou/uL (130-400) 07/23/19 16:17 Neutrophils % 59.9 % (42.0-75.0) 07/23/19 16:17 Sodium 136 mmol/L (136-145) 07/23/19 16:17 Potassium 4.1 mmol/L (3.5-5.1) 07/23/19 16:17 Chloride 101 mmol/L (98-107) 07/23/19 16:17 Carbon Dioxide 24 mmol/L (22-29) 07/23/19 16:17 BUN 14 mg/dL (7.0-18.7) 07/23/19 16:17 Creatinine 1.03 mg/dL (0.6-1.1) 07/23/19 16:17 Glucose 341 mg/dL (70-105) H 07/23/19 16:17 Calcium 9.2 mg/dL (7.8-10.44) 07/23/19 16:17 Total Bilirubin 0.8 mg/dL (0.2-1.2) 07/23/19 16:17 AST 21 U/L (5-34) 07/23/19 16:17 ALT 19 U/L (8-55) 07/23/19 16:17 Alkaline Phosphatase 120 U/L (40-110) H 07/23/19 16:17 Creatine Kinase 133 U/L (29-168) 07/23/19 16:17 B-Natriuretic Peptide 119.0 pg/mL (0-100) H 07/23/19 16:17 Serum Total Protein 7.8 g/dL (6.0-8.3) 07/23/19 16:17 Albumin 4.1 g/dL (3.5-5.0) 07/23/19 16:17 Lipase 12 U/L (8-78) 07/23/19 16:17 Urine Ketones Trace mg/dL (Negative) A 07/23/19 18:13 Urine Blood Negative (Negative) 07/23/19 18:13 Urine Nitrite Negative (Negative) 07/23/19 18:13 Ur Leukocyte Esterase Negative Jennifer/uL (Negative) 07/23/19 18:13 Urine RBC 0-3 HPF (0-3) 07/23/19 18:13 Urine WBC 0-3 HPF (0-3) 07/23/19 18:13 Ur Squamous Epith Cells 0-3 HPF (0-3) 07/23/19 18:13 Urine Bacteria None Seen HPF (None Seen) 07/23/19 18:13 FMR H&P: A/P - Problem List (1) Hypertensive emergency Current Visit: Yes Status: Acute Code(s): I16.1 - HYPERTENSIVE EMERGENCY (2) Diabetes mellitus type 2 in obese Current Visit: No Status: Chronic Code(s): E11.9 - TYPE 2 DIABETES MELLITUS WITHOUT COMPLICATIONS; E66.9 - OBESITY, UNSPECIFIED (3) Systolic CHF Current Visit: No Status: Chronic Code(s): I50.20 - UNSPECIFIED SYSTOLIC ( CONGESTIVE) HEART FAILURE (4) CKD (chronic kidney disease) stage 2, GFR 60-89 ml/min Current Visit: Yes Status: Acute Code(s): N18.2 - CHRONIC KIDNEY DISEASE, STAGE 2 (MILD) - Plan Pt is a 38 yo F HTN ( 20 years after first child), DMII (3 years), Depression, and CHF (4 years) presents to the ED for increased shortness of breath. 1. HTN Urgency Labs within normal limits * Trend Trops * Will get ECHO to assess heart function * Restart home bp medications * Nicardipine drip * Critical Care consulted, Dr. Becerra, appreciate recs 2. CHF Continue home medications * Strict I&Os * Daily weights 3. DMII Restarted home medications * ACHS checks, Moderate sliding scale 4. CKD3 > CKD2 Cre: 1.03, GFR: 73 * Will monitor with CMP 5. Depression Not currently taking medication * Spiritual Care consulted per patient's request Code Status: Full Diet: HHLSo DVT PPx: Lovenox GI PPx: Tums PCP: CC Dispo: Admit to CCU for HTN Urgency and treatment. LOS > 48H. FMR H&P: Upper Level - Plan Date/Time: 07/23/192008 I, [], have evaluated this patient and agree with findings/plan as outlined by technology risk intern resident. Pertinent changes/additions are listed here. Addendum - Attending - Attending Attestation Date/Time: 07/24/19658 I personally evaluated the patient and discussed the management with Dr. Fawn Grimaldo on 07/23/2019 I agree with the History, Examination, Assessment and Plan documented above with any addition or exceptions noted below- 38 yo F HTN, DMII, Depression, and HFrEF presents to the ED for increased shortness of breath. She says she started having more shortness of breath about 2 and half to 3 weeks lately. She said she first started noticing that she got shorter of breath with walking. She has to sit at a 90 degree angle to sleep at night and she wakes up at night short of breath. She says she used to take medications for her blood pressure, but she stopped because it made her feel like a zombie. Seen in [facility] 3 days ago and found to have markedly elevated BP. Was treated and started on lisinopril and carvedilol but symptoms have persisted. Does report some chest pressure. Denies any diaphoresis, radiation of chest pain, N/V, or CHAMBERS. PMH/PSH/ meds/SH reviewed and agree with resident's documentation. Afebrile BP199/132 P104 RR15. Exam repeated by me and agree with resident's findings. A/P: 1) Hypertensive urgency- Admit to ICU; continue cardene drip for BP. Restart lisinopril and carvedilol and wean cardene as tolerated. 2) DM- restart levemir. Monitor accuchecks. Consider addition of SGLT2i for CV benefit. 3) HFrEF- no recent echo or follow-up with cardiology- will obtain echo; continue lasix.
[2019-07-23] MEDS ORDERED: Acetaminophen 325 MG TAB PO PRN (20:47)
[2019-07-23] MEDS ORDERED: Calcium Carbonate 500 MG ChewTAB PO PRN (20:47)
[2019-07-23] MEDS ORDERED: Mag-Al 1200 mg/1200 mg/30 ML UDCUP PO PRN (20:47)
[2019-07-23] MEDS ORDERED: Senokot S 8.6-50 MG TAB PO PRN (20:47)
[2019-07-23] MEDS ORDERED: niCARdipine 25 MG in Sodium Chloride 0.9% 250 ML 250 ML IVPB PRN (20:47)
[2019-07-23] MEDS ORDERED: Bisacodyl 5 MG TAB PO PRN (20:47)
[2019-07-23] MEDS ORDERED: Ondansetron PF 4 MG/2 ML Vial IVP PRN (20:47)
[2019-07-23] MEDS ORDERED: Dextrose 50% Abboject 50 ML SYRINGE SLOW IVP PRN (21:01)
[2019-07-23] MEDS ORDERED: HumaLOG 300 UNITS/3 ML VIAL SC PRN (21:01)
[2019-07-23] MEDS ORDERED: Dextrose 5% in Water 1,000 ML IV PRN (21:01)
[2019-07-23 21:40] LABS: Troponin I 0.011 ng/mL (< 0.028)
[2019-07-23] MEDS ORDERED: niCARdipine 25 MG in Sodium Chloride 0.9% 250 ML 240 ML IVPB PRN (21:52)
[2019-07-23 21:55] VITALS: BMI 41.5
[2019-07-23] MEDS: niCARdipine 50 MG in Sodium Chloride 0.9% 250 ML 230 ML IVPB PRN (23:44)
[2019-07-24 01:08] LABS: Troponin I Less than 0.010 ng/mL (< 0.028)
[2019-07-24] MEDS: niCARdipine 50 MG in Sodium Chloride 0.9% 250 ML 230 ML IVPB PRN (05:02)
[2019-07-24] MEDS: HumaLOG 300 UNITS/3 ML VIAL SC PRN ×3 (06:07→17:52)
--- NOTE | 2019-07-24 07:08 | PDOC.FM ---
- Subjective Subjective: No acute events over night. Per pt, she is feeling somewhat better this morning. SOB has improved and she is able to lay flatter than she has been in the past few weeks. - Objective MAR Reviewed: Yes Vital Signs & Weight: Vital Signs (12 hours) Temp Pulse BP Pulse Ox 07/24/19 04:00 98.7 F 07/24/19 00:00 98.8 F 07/23/19 22:08 103 H 184/124 H 07/23/19 22:00 99.0 F 97 Weight Weight 113.4 kg Most Recent Monitor Data Heart Rate from ECG 85 NIBP 109/72 NIBP BP-Mean 84 Respiration from ECG 20 SpO2 96 I&O: 07/23/19 07/24/19 07/25/19 06:59 06:59 06:59 Intake Total 1124 Output Total 1900 Balance -776 Result Diagrams: 07/24/19 06:55 07/24/19 06:55 Phys Exam - Physical Examination Constitutional: NAD HEENT: PERRLA, moist MMs, sclera anicteric Neck: no nodes, no JVD Respiratory: clear to auscultation bilateral Cardiovascular: RRR, no significant murmur Gastrointestinal: soft, non-tender, no distention Musculoskeletal: no edema Neurological: non-focal, moves all 4 limbs Psychiatric: normal affect, A&O x 3 Skin: no rash Dx/Plan (1) HFrEF (heart failure with reduced ejection fraction) Code(s): I50.20 - UNSPECIFIED SYSTOLIC (CONGESTIVE) HEART FAILURE Status: Acute (2) Hyperglycemia Code(s): R73.9 - HYPERGLYCEMIA, UNSPECIFIED Status: Acute (3) Hypertensive emergency Code(s): I16.1 - HYPERTENSIVE EMERGENCY Status: Acute (4) Diabetes Code(s): E11.9 - TYPE 2 DIABETES MELLITUS WITHOUT COMPLICATIONS Status: Acute Qualifiers: Diabetes mellitus type: type 2 Diabetes mellitus vermin exterminator insulin use: with vermin exterminator use Diabetes mellitus complication status: without complication Qualified Code(s): E11.9 - Type 2 diabetes mellitus without complications; Z79.4 - terminal manager (current) use of insulin (5) Hypertension Code(s): I10 - ESSENTIAL (PRIMARY) HYPERTENSION Status: Acute Qualifiers: Hypertension type: essential hypertension Qualified Code(s): I10 - Essential (primary) hypertension - Plan Plan: 1. Hypertensive emergency - BP well controlled at this time. Plan to decrease cardine today and hopefully can transfer to the floor. - restart home meds 2. HFrEF - echo from 2017 shows global hypokinesis and EF of 35-34% - repeat echo today. Appears to currently be euvolemic - re start beta violet and JOHN-I. Check lipid and TSH 3. DM2 - restart home meds - low carb diet - accucheck ACHS with SSI 4. HTN - as above Code Full Diet low carb PPx lovenox Dispo: expect 2-3 midnight stay. Currently stable with a good prognosis Addendum - Attending - Attending Attestation Date/Time: 07/24/19 2285 I personally evaluated the patient and discussed the management with Dr. Venegas I agree with the History, Examination, Assessment and Plan documented above with any addition or exceptions noted below.
[2019-07-24 07:38] LABS: ALT (SGPT) 17 U/L (8-55); AST (SGOT) 13 U/L (5-34); Albumin 3.9 g/dL (3.5-5.0); Alkaline Phosphatase 107 U/L (40-110); Anion Gap 11 mmol/L (10-20); BUN (Urea Nitrogen) 14 mg/dL (7.0-18.7); Bilirubin, Total 0.8 mg/dL (0.2-1.2); Calc. Creatinine Clearance 152 mL/min (70-130); Calcium 8.8 mg/dL (7.8-10.44); Carbon Dioxide 24 mmol/L (22-29); Cardiac Risk 3.4 (Less than 4.5); Chloride 104 mmol/L (98-107); Estimated GFR-MDRD 85; Globulin 3.5 g/dL (2.4-3.5); Glucose 310 mg/dL (70-105); Potassium 3.4 mmol/L (3.5-5.1); Protein, Total 7.4 g/dL (6.0-8.3); Sodium 136 mmol/L (136-145)
[2019-07-24] MEDS: Carvedilol 25 MG TAB PO SCH ×2 (08:18→17:52)
[2019-07-24] MEDS: Lisinopril 20 MG TAB PO SCH (08:29)
[2019-07-24] MEDS: Enoxaparin Sodium 40 MG/0.4 ML SYRINGE SC SCH (08:30)
[2019-07-24] MEDS: Furosemide 40 MG TAB PO SCH (08:30)
[2019-07-24] MEDS: Insulin Glargine 52 UNITS in Pre-Filled Syringe 1 EACH SC SCH ×2 (08:55→21:04)
[2019-07-24] MEDS ORDERED: INSULIN DETEMIR SC SCH ×2 (09:00→21:00)
--- NOTE | 2019-07-24 09:46 | CON ---
DATE OF CONSULTATION: HISTORY OF PRESENT ILLNESS: Estela Billings is a 38-year-old morbidly obese female, 117 kg, presented to the ER with shortness of breath, uncontrolled hypertension. She says that she is going for last 2 weeks without any associated fever or chills. She has stopped taking her blood pressure medicine because there were too many at one time. She is diagnosed with sleep apnea, but she has not been wearing a CPAP machine for many years. She has no primary care physician. PAST MEDICAL HISTORY: 1. History of congestive heart failure. 2. Sleep apnea. 3. Morbid obesity. 4. Diabetes. 5. Hypertension. 6. Previous cardiac arrhythmias and ablation. PAST SURGICAL HISTORY: 1. Ablation. 2. Hysterectomy. SOCIAL HISTORY: No alcohol or tobacco ever. 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 HOME MEDICATIONS: Include; 1. Lisinopril 20. 2. Insulin 52 units twice a day. 3. Lasix 80. 4. Coreg 25. REVIEW OF SYSTEMS: A 10-point negative. PHYSICAL EXAMINATION: VITAL SIGNS: Blood pressure 150/100 and also on Cardene, pulse 92, respiratory rate 18, O2 sats are 100%. CHEST: No wheezing or crackles. CARDIAC: Normal S1, S2. No gallops. ABDOMEN: No masses. LABORATORY DATA: Unremarkable. Chest x-ray shows slight cardiomegaly. ASSESSMENT: 1. Uncontrolled hypertension. 2. Cardiomyopathy. 3. Sleep apnea. PLAN: I will restart home medication. She can then be transferred out of the ICU. She needs a repeat sleep study, very important, so she can go back on a CPAP, which will definitely help her blood pressure. Obviously, she was encouraged to lose weight. Consultation note, 70 minutes, 50% direct patient care. Job ID: [id number]
--- NOTE | 2019-07-24 09:56 | RAD ---
PORTABLE CHEST: Date: 07/24/2019 HISTORY: Respiratory distress. COMPARISON: Prior day's exam. FINDINGS: Film was shot in a more lordotic fashion. Heart size appears slightly enlarged, probably at least a p ortion of this is related to technique. Lungs appear clear of any infiltrative process. IMPRESSION: Borderline heart size. Given differences in technique. Probably not a significant degree of change. POS: [facility]
[2019-07-24] MEDS ORDERED: Potassium Chloride 20 MEQ TAB PO SCH (10:00)
[2019-07-24 10:25] LABS: Band 2 % (5-11); Eosinophils 1 % (0-10); Hemoglobin 12.9 g/dL (12.0-16.0); Lymphocytes 30 % (21-51); MDiff Complete? YES; Mean Corpuscular HGB CONC 32.9 g/dL (32.0-36.0); Mean Corpuscular Hemoglobin 27.9 pg (27.0-31.0); Mean Corpuscular Volume 84.9 fL (78.0-98.0); Mean Platelet Volume 10.5 fL (7.4-10.4); Monocytes 3 % (0-10); Neutrophil 64 % (42-75); Platelet Count 195 thou/uL (130-400); RBC Distribution Width 12.7 % (11.5-14.5); Red Blood Cell (RBC) Count 4.63 mill/uL (4.20-5.40); White Blood Cell (WBC) Count 7.6 thou/uL (4.8-10.8)
--- NOTE | 2019-07-25 07:59 | PDOC.FM ---
- Subjective Subjective: No acute events overnight. Pt sleeping flat on her back this morning, states that she is no longer SOB. No new symptoms, no new concerns - Objective MAR Reviewed: Yes Vital Signs & Weight: Vital Signs (12 hours) Temp Pulse Resp BP Pulse Ox 07/25/19 03:19 98.5 F 76 20 149/95 H 96 07/24/19 23:43 98.8 F 80 20 139/97 H 98 07/24/19 20:00 98 Weight Weight 113.398 kg Most Recent Monitor Data Heart Rate from ECG 78 NIBP 116/73 NIBP BP-Mean 87 Respiration from ECG 15 SpO2 99 I&O: 07/24/19 07/25/19 07/26/19 06:59 06:59 06:59 Intake Total 1124 1062 Output Total 1900 1000 Balance -776 62 Result Diagrams: 07/24/19 06:55 07/24/19 06:55 Phys Exam - Physical Examination Constitutional: NAD HEENT: PERRLA, moist MMs Neck: no nodes Respiratory: clear to auscultation bilateral Cardiovascular: RRR, no significant murmur Gastrointestinal: soft, non-tender, no distention Neurological: non-focal, moves all 4 limbs Psychiatric: normal affect, A&O x 3 Skin: no rash Dx/Plan (1) HFrEF (heart failure with reduced ejection fraction) Code(s): I50.20 - UNSPECIFIED SYSTOLIC (CONGESTIVE) HEART FAILURE Status: Acute (2) Hyperglycemia Code(s): R73.9 - HYPERGLYCEMIA, UNSPECIFIED Status: Acute (3) Hypertensive emergency Code(s): I16.1 - HYPERTENSIVE EMERGENCY Status: Acute (4) Diabetes Code(s): E11.9 - TYPE 2 DIABETES MELLITUS WITHOUT COMPLICATIONS Status: Acute Qualifiers: Diabetes mellitus type: type 2 Diabetes mellitus prison insulin use: with terminal press operator use Diabetes mellitus complication status: without complication Qualified Code(s): E11.9 - Type 2 diabetes mellitus without complications; Z79.4 - terminal press operator (current) use of insulin (5) Hypertension Code(s): I10 - ESSENTIAL (PRIMARY) HYPERTENSION Status: Acute Qualifiers: Hypertension type: essential hypertension Qualified Code(s): I10 - Essential (primary) hypertension - Plan Plan: 1. HTN - continue home meds. May need further titration of dose, outpatient - ERIC is almost certainly contributing, will need outpt sleep study 2. HFrEF - echo pending - beta violet and JOHN-I. - normal lipid and tsh - continue lasix 3. DM2 - home meds - low carb diet - accucheck ACHS with SSI - restarting metformin. Given setting of heart failure, would start SGLT2 if additional glucose control is needed 4. Hypertensive emergency, resolved Code Full Diet low carb PPx lovenox Dispo: stable and ready to dc pending echo Addendum - Attending - Attending Attestation Date/Time: 07/25/19 1050 I personally evaluated the patient and discussed the management with Dr. Venegas. I agree with the History, Examination, Assessment and Plan documented above with any addition or exceptions noted below. F/U echo read. BP and glucose better but not at goal. Can d/c home w/ close outpatient f/u.
[2019-07-25] MEDS ORDERED: metFORMIN 500 MG TAB PO SCH (08:00)
[2019-07-25] MEDS: Lisinopril 20 MG TAB PO SCH (09:01)
[2019-07-25] MEDS: Carvedilol 25 MG TAB PO SCH (09:01)
[2019-07-25] MEDS: Furosemide 40 MG TAB PO SCH (09:01)
[2019-07-25] MEDS: Enoxaparin Sodium 40 MG/0.4 ML SYRINGE SC SCH (09:02)
[2019-07-25] MEDS: Insulin Glargine 52 UNITS in Pre-Filled Syringe 1 EACH SC SCH (09:02)
[2019-07-25 09:30] VITALS: TEMP 98.3
[2019-07-25] MEDS: HumaLOG 300 UNITS/3 ML VIAL SC PRN (11:25)
[2019-07-25 12:18] VITALS: BP 134/93
--- NOTE | 2019-07-25 13:58 | PRG ---
DATE OF SERVICE: 07/25/2019 SUBJECTIVE: This morning, she is better. No headache. No shortness of breath. OBJECTIVE: VITAL SIGNS: Temperature 98, pulse 80, blood pressure 134/94, respirations 18. CHEST: No wheezing or crackles. CARDIAC: Normal S1 and S2. No gallops. ABDOMEN: No mass. ASSESSMENT: Hypertensive crisis, improved; morbid obesity; abnormal renal failure. PLAN: Continue home medication. Disposition home any time. Pulmonary/Critical Care will follow at a distance. Job ID: [id number]
--- NOTE | 2019-07-26 03:42 | DIS ---
DATE OF ADMISSION: 07/23/2019 DATE OF DISCHARGE: 07/25/2019 ADMITTING ATTENDING: Cinthia Vasquez MD. DISCHARGE ATTENDING: Donal Russ MD. RESIDENT: Mark Venegas D.O. PROCEDURES: Echocardiogram on 07/24/2019, results still pending. Chest x-ray on 07/24/2019, finding of borderline heart size, no infiltrate. Chest x-ray on 07/23/2019 with finding of no active cardiopulmonary abnormalities. CONSULTS: Josep Becerra MD, , Critical Care/Pulmonology. ADMITTING DIAGNOSIS: Hypertensive emergency. SECONDARY DIAGNOSES: 1. Hypertension. 2. Type 2 diabetes. 3. Heart failure with reduced ejection fraction. 4. Chronic kidney disease 3. 5. Suspected obstructive sleep apnea. DISCHARGE MEDICATIONS: Insulin detemir 52 units subcu q.a.m. and at bedtime, Coreg 25 mg p.o. b.i.d., Lasix 80 mg p.o. daily, lisinopril 20 mg p.o. daily, and metformin 1000 mg p.o. b.i.d. HOSPITAL COURSE: This is a 38-year-old female who was admitted initially to the ICU for hypertensive emergency. Blood pressures in the emergency room over 220/150. She was then given labetalol x2 in the emergency department without significant improvement in her blood pressure. She was admitted to the ICU and started on a Cardene drip. She was on that drip for approximately 8 to 10 hours and blood pressure corrected quickly. She was then transferred to telemetry and restarted on her home blood pressure management regimen. Apparently, the patient had not been taking any of her blood pressure or diabetic medications for some time because taking the medications were inconvenient and she did not like the way it they made herself. Blood pressure was reasonably well controlled on home medications, however, in the outpatient setting, she likely will need additional titration of the dosing. There is also some concern on presentation that she was having some amount of CHF exacerbation given her symptoms of 2-pillow orthopnea. She was diuresed and these symptoms improved significantly. On the morning of discharge, the patient was able to lay flat without any problems. An echo was pending at the time of discharge. Patient is on a beta violet, JOHN inhibitor, and lisinopril. Her lipids were normal, however, she may certainly benefit from a statin. This should be considered by outpatient physician. Her blood sugar was also uncontrolled in the outpatient setting. She was restarted on metformin and given a sliding scale in the outpatient setting. Her blood sugar was elevated, however, not such that it would preclude her from discharge. The patient should follow up quickly in the outpatient setting for management of all of these comorbidities. The patient will likely benefit from an SGOT tube given the fact that she has both CHF and uncontrolled diabetes. Also of note, the patient should have a sleep study in the outpatient setting for suspected obstructive sleep apnea, which would be contributing to her blood pressure and possible heart failure. DISCHARGE INSTRUCTIONS: Location: Home. Diet: Heart healthy and diabetic diet. Follow up with PCP, [facility] within one week. ACTIVITY: Ad valeriano. Job ID: [id number]
== END 2019-07-25 16:00 | disposition home or self-care (01) | DRG 305 ==
LOC: ERS 15:34 → CCU 20:15 → 2NO 07-24 13:13
PROVIDERS: ADMIT Family Medicine; ATTEND Family Medicine
DX: I16.1 Hypertensive emergency (principal); I50.22 Chronic systolic (congestive) heart failure; I42.9 Cardiomyopathy, unspecified; I16.9 Hypertensive crisis, unspecified; Z68.41 Body mass index [BMI] 40.0-44.9, adult; N18.3 Chronic kidney disease, stage 3 (moderate); I13.0 Hypertensive heart and chronic kidney disease with heart failure and stage 1 through stage 4 chronic kidney disease, or unspecified chronic kidney disease; G47.33 Obstructive sleep apnea (adult) (pediatric); E11.22 Type 2 diabetes mellitus with diabetic chronic kidney disease; F32.9 Major depressive disorder, single episode, unspecified; E66.01 Morbid (severe) obesity due to excess calories; Z90.710 Acquired absence of both cervix and uterus; Z79.4 Long term (current) use of insulin
CPT/HCPCS: 36415; 36416; 71045; 80053; 80061; 81003; 81015; 82550; 83690; 83880; 84443; 84484; 85007; 85025; 85027; 93005; 93306; J1650; J1815; J7050